=== PATIENT | female | born 2000 | race Caucasian/White ===

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

== ENCOUNTER 2019-04-22 14:17 | Emergency (ER) | payer BC ==
[2019-04-22] MEDS ORDERED: Acetaminophen TAB* 325 MG PO ONE (14:56)
--- NOTE | 2019-04-22 15:01 | ED ---
Lower Extremity - HPI Summary HPI Summary: This patient is a 18-year-old female presenting to the ED with a left ankle injury. She states last evening, she twisted the ankle and had immediate pain. She's been ambulatory, however has been limping. There is slight swelling to the dorsum and lateral side of the ankle with erythema and ecchymosis. Denies any other injuries. Denies any pain to the extremities otherwise. She is not taken any ibuprofen or Tylenol for discomfort. She has not used any ice or elevated the extremity. She takes no medications and is otherwise healthy. - History of Current Complaint Chief Complaint: EDExtremityLower Stated Complaint: LEFT ANKLE INJ PER PT Time Seen by Provider: 04/22/19 14:42 Hx Obtained From: Patient Mechanism Of Injury: Twisted Onset of Pain: Hours Onset/Duration: Hours Severity Initially: Mild Severity Currently: Mild Pain Intensity: 4 Pain Scale Used: 0-10 Numeric Timing: Constant Location: Is Discrete @ - left ankle Associated Signs And Symptoms: Positive: Swelling, Bruising Aggravating Factor(s): Standing, Ambulation Alleviating Factor(s): Rest Able to Bear Weight: No - Risk Factors Gout Risk Factors: Negative DVT Risk Factors: Negative Septic Arthritis Risk Factor: Negative - Allergies/Home Medications Allergies/Adverse Reactions: Allergies Allergy/AdvReac Type Severity Reaction Status Date / Time tuna oil Allergy Rash And Verified 04/22/19 14:22 Itching Home Medications: Home Medications Escitalopram * [Lexapro 10 mg (NF)] 10 mg PO BEDTIME 04/22/19 [History Confirmed 04/22/19] Levonorgestrel (Iud) [Mirena IUD] 20 mcg IU SEE INSTRUCTIONS 04/22/19 [History Confirmed 04/22/19] PMH/Surg Hx/FS Hx/Imm Hx Previously Healthy: Yes Endocrine/Hematology History: Denies: Hx Diabetes Cardiovascular History: Denies: Hx Coronary Artery Disease - Immunization History Hx Pertussis Vaccination: No Immunizations Up to Date: Yes Infectious Disease History: No Infectious Disease History: Denies: Traveled Outside the [place] in Last 30 Days - Family History Known Family History: Negative: Hypertension - Social History Occupation: Unemployed Lives: With Family Alcohol Use: Rare Hx Substance Use: No Substance Use Type: Reports: None Hx Tobacco Use: No Smoking Status (MU): Never Smoked Tobacco Review of Systems Constitutional: Negative Negative: Fever, Chills, Fatigue, Skin Diaphoresis Negative: Palpitations, Chest Pain Negative: Shortness Of Breath, Cough Genitourinary: Negative Positive: no symptoms reported, see HPI Positive: Arthralgia - left ankle pain Positive: Bruising Neurological: Negative All Other Systems Reviewed And Are Negative: Yes Physical Exam Triage Information Reviewed: Yes Vital Signs On Initial Exam: Initial Vitals Temp Pulse Resp BP Pulse Ox 98.5 F 70 14 106/76 100 04/22/19 14:19 04/22/19 14:04/22/19 14:19 04/22/19 14:04/22/19 14:19 Vital Signs Reviewed: Yes Appearance: Positive: Well-Appearing, Well-Nourished Skin: Positive: Warm, Skin Color Reflects Adequate Perfusion, Other - ecchymosis Head/Face: Positive: Normal Head/Face Inspection Eyes: Positive: EOMI, MAG, Conjunctiva Clear Neck: Positive: Supple, No Lymphadenopathy Respiratory/Lung Sounds: Positive: Clear to Auscultation, Breath Sounds Present Cardiovascular: Positive: RRR, Pulses are Symmetrical in both Upper and Lower Extremities Musculoskeletal: Positive: Pain @ - ankle pain Neurological: Positive: Sensory/Motor Intact, Alert, Oriented to Person Place, Time, Speech Normal Psychiatric: Positive: Affect/Mood Appropriate AVPU Assessment: Alert Diagnostics - Vital Signs Vital Signs Temp Pulse Resp BP Pulse Ox 04/22/19 14:19 98.5 F 70 14 106/76 100 - Laboratory Lab Statement: Any lab studies that have been ordered have been reviewed, and results considered in the medical decision making process. Lower Extremity Course/Dx - Course Course Of Treatment: On physical examination, there is ecchymosis with slight swelling to the lateral portion of the left ankle with slight swelling to the dorsum of the foot. Erythema and ecchymosis. X-ray obtained:REPORT AND IMPRESSION: #. Fifth metatarsal base tuberosity avulsion fracture with up to 0.2 cm proximal displacement of the tuberosity. Mild overlying soft tissue swelling. #. Negative for additional fracture. #. Normal articular alignment throughout. Posterior walking applied. Will follow-up with her next week. Crutches given. - Diagnoses Provider Diagnoses: Fracture of fifth metatarsal bone Discharge ED - Sign-Out/Discharge Documenting (check all that apply): Patient Departure Patient Received Moderate/Deep Sedation with Procedure: No - Discharge Plan Condition: Stable Disposition: HOME Patient Education Materials: Foot Fracture in Adults (ED) Referrals: Kahlil Mata MD [Medical Doctor] - [facility] [Primary Care Provider] - Additional Instructions: Crutches Please follow up with ortho Ibuprofen 600mg three times daily Non weight bearing Call ortho in the morning - Billing Disposition and Condition Condition: STABLE Disposition: Home
[2019-04-22 17:05] VITALS: BP 107/67
== END 2019-04-22 16:56 | disposition home or self-care (01) ==
LOC: ED 14:17
DX: S92.352A Displaced fracture of fifth metatarsal bone, left foot, initial encounter for closed fracture (principal); X58.XXXA Exposure to other specified factors, initial encounter; Y92.9 Unspecified place or not applicable; Z79.899 Other long term (current) drug therapy
CPT/HCPCS: 99282; A9270-GY